=== PATIENT | female | born 1990 | race Caucasian/White ===

== ENCOUNTER 2022-03-08 22:11 | Inpatient (IN) | payer OTHER ==
[~2022-03-08] VITALS: Ht 160 cm; Wt 65.8 kg
[2022-03-08] MEDS ORDERED: METHYLERGONOVINE 0.2 MG/ML AMP IM PRN (23:05)
[2022-03-08] MEDS ORDERED: CARBOPROST 250 MCG/ML AMP IM PRN (23:05)
[2022-03-08 23:24] LABS: BASOPHILS % (AUTO) 0.5 % (0.0-2.0); EOSINOPHILS # (AUTO) 0.2 K/uL (0-0.4); EOSINOPHILS % (AUTO) 1.8 % (0.0-4.0); HEMATOCRIT 35.4 % (36-48); HEMOGLOBIN 12.2 g/dL (12.0-16.0); LYMPHOCYTES # (AUTO) 2.3 K/uL (2.5-16.5); LYMPHOCYTES % (AUTO) 25.3 % (20.5-51.1); MEAN CORPUSCULAR HEMOGLOBIN 31 pg (27-31); MEAN CORPUSCULAR HGB CONC 35 g/dL (33-37); MEAN CORPUSCULAR VOLUME 90.3 fL (80-94); MONOCYTES # (AUTO) 0.6 K/uL (0.8-1.0); MONOCYTES % (AUTO) 6.4 % (1.7-9.3); NEUTROPHILS # (AUTO) 5.9 K/uL (1.8-7.7); PLATELET COUNT (AUTO) 206 K/uL (140-450); RED BLOOD CELL COUNT(AUTO) 3.92 MIL/uL (4.20-5.40); RED CELL DISTRIBUTION WIDTH 13.1 % (11.6-13.7)
[2022-03-08 23:50] LABS: ALBUMIN 2.7 g/dL (3.4-5.0); ANION GAP 12.9 (8-16); CARBON DIOXIDE 22.5 mmol/L (21-32); CREATININE 0.6 mg/dL (0.6-1.3); POTASSIUM 3.4 mmol/L (3.5-5.1); PROTHROMBIN TIME 9.1 secs (10.8-13.4); TOTAL BILIRUBIN 0.5 mg/dL (0.0-1.0)
[2022-03-08 23:56] LABS: APPEARANCE,URINE HAZY (CLEAR); BILIRUBIN,URINE NEGATIVE (NEGATIVE); BLOOD, URINE NEGATIVE (NEGATIVE); COLOR,URINE YELLOW (YELLOW); LEUKOCYTE ESTERASE ,URINE 2+ (NEGATIVE); NITRITE, URINE NEGATIVE (NEGATIVE); PH,URINE 6.5 (5.0-9.0); UGLUCOSE NEGATIVE (NEGATIVE)
[2022-03-09 00:23] LABS: RBC,URINE 0-5 /HPF (0-5)
[2022-03-09] MEDS: LACTATED RINGERS 1,000 ML IV SCH ×2 (02:35→04:14)
[2022-03-09 03:34] VITALS: BP 104/71
[2022-03-09] MEDS ORDERED: OXYTOCIN 20 UNITS in LACTATED RINGERS 1,000 ML IV SCH (03:35)
[2022-03-09] MEDS ORDERED: ROPIVACAINE 0.2%/NS PREMIX 200 ML EPI ONE (03:42)
[2022-03-09] MEDS ORDERED: fentaNYL citrate 0.05 MG/ML VIAL ONE (03:42)
[2022-03-09] MEDS ORDERED: OXYTOCIN 20 UNITS/LR PREMIX 1,000 ML IV ONE (04:01)
[2022-03-09] MEDS: LACTATED RINGERS 500 ML IV SCH ×2 (08:13→12:17)
--- NOTE | 2022-03-09 08:49 | NUR ---
PATIENT HAS BEEN SCREENED AND CATEGORIZED LOW NUTRITION RISK. PATIENT WILL BE SEEN WITHIN 7 DAYS OF ADMISSION. 03/15/[address]
[2022-03-09] MEDS ORDERED: METHYLERGONOVINE 0.2 MG TAB PO PRN (13:00)
[2022-03-09] MEDS ORDERED: IBUPROFEN 800 MG TAB PO PRN (13:00)
[2022-03-09] MEDS ORDERED: BENZOCAINE/MENTHOL 20%-0.5% 60 GM CAN TP PRN (13:00)
[2022-03-09] MEDS ORDERED: OXYTOCIN 10 UNITS/ML VIAL IM PRN (13:00)
[2022-03-09] MEDS ORDERED: MEASLES, MUMPS, AND RUBELLA 1 VIAL SQVAC ONE (13:00)
[2022-03-09] MEDS ORDERED: METHYLERGONOVINE 0.2 MG/ML AMP IM PRN (13:00)
[2022-03-10 14:56] LABS: HEMATOCRIT 30.6 % (36-48); HEMOGLOBIN 10.6 g/dL (12.0-16.0)
== END 2022-03-11 17:14 | disposition home or self-care (01) | DRG 560 ==
LOC: MLD 22:11 → MFCC 03-09 15:05
PROVIDERS: ADMIT Obstetrics & Gynecology; ATTEND Obstetrics & Gynecology
PROC: 10E0XZZ Delivery of Products of Conception, External Approach (ICD-10-PCS; principal; 2022-03-09)
PROC: 0HQ9XZZ Repair Perineum Skin, External Approach (ICD-10-PCS; 2022-03-09)
PROC: 3E0R3BZ Introduction of Anesthetic Agent into Spinal Canal, Percutaneous Approach (ICD-10-PCS; 2022-03-09)
PROC: 00HU33Z Insertion of Infusion Device into Spinal Canal, Percutaneous Approach (ICD-10-PCS; 2022-03-09)
DX: O80 Encounter for full-term uncomplicated delivery (principal); Z37.0 Single live birth; D62 Acute posthemorrhagic anemia; O70.0 First degree perineal laceration during delivery; Z20.822 Contact with and (suspected) exposure to COVID-19; Z3A.39 39 weeks gestation of pregnancy
CPT/HCPCS: 36415; 51702; 59409; 76815; 80053; 81001; 85018; 85025; 85610; 85730; 86592; 86886; 86900; 86901; 87086; J2590; J2795; J3010; Q0092

== ENCOUNTER 2024-04-19 13:47 | Inpatient (IN) | payer OTHER ==
[~2024-04-19] VITALS: Ht 165.1 cm; Wt 65.8 kg
[2024-04-19] MEDS ORDERED: PREN-543 PO (13:56)
[2024-04-19] MEDS ORDERED: OXYTOCIN/0.9 % SODIUM CHLORIDE 500 ML IV SCH (14:20)
[2024-04-19] MEDS ORDERED: CARBOPROST 250 MCG/ML AMP IM PRN (14:20)
[2024-04-19] MEDS ORDERED: LACTATED RINGERS 500 ML IV SCH (14:20)
[2024-04-19] MEDS ORDERED: METHYLERGONOVINE 0.2 MG/ML AMP IM PRN ×2 (14:20→15:20)
[2024-04-19] MEDS ORDERED: OXYTOCIN 10 UNITS/ML VIAL IM SCH (14:20)
[2024-04-19 14:25] LABS: BASOPHILS % (AUTO) 0.3 % (0.0-2.0); EOSINOPHILS # (AUTO) 0.1 K/uL (0-0.4); EOSINOPHILS % (AUTO) 0.4 % (0.0-4.0); HEMATOCRIT 37.6 % (36-48); LYMPHOCYTES # (AUTO) 1.7 K/uL (2.5-16.5); LYMPHOCYTES % (AUTO) 12.4 % (20.5-51.1); MEAN CORPUSCULAR HEMOGLOBIN 32 pg (27-31); MEAN CORPUSCULAR HGB CONC 35 g/dL (33-37); MEAN CORPUSCULAR VOLUME 92.8 fL (80-94); MONOCYTES # (AUTO) 0.6 K/uL (0.8-1.0); MONOCYTES % (AUTO) 4.3 % (1.7-9.3); NEUTROPHILS # (AUTO) 11.2 K/uL (1.8-7.7); NEUTROPHILS % (AUTO) 82.6 % (42.2-75.2); PLATELET COUNT (AUTO) 204 K/uL (140-450); RED BLOOD CELL COUNT(AUTO) 4.05 MIL/uL (4.20-5.40); RED CELL DISTRIBUTION WIDTH 13.2 % (11.6-13.7); WHITE BLOOD COUNT (AUTO) 13.5 K/uL (4.8-10.8)
[2024-04-19] MEDS ORDERED: LIDOCAINE 1% 500 MG/50 ML VIAL ONE (14:28)
[2024-04-19 14:38] LABS: ALBUMIN 2.6 g/dL (3.4-5.0); ANION GAP 14.7 (8-16); CALCIUM 8.8 mg/dL (8.5-10.1); CARBON DIOXIDE 21.7 mmol/L (21-32); CREATININE 0.6 mg/dL (0.6-1.3); POTASSIUM 3.4 mmol/L (3.5-5.1); TOTAL BILIRUBIN 0.5 mg/dL (0.0-1.0); TOTAL PROTEIN, SERUM 6.7 g/dL (6.4-8.2)
[2024-04-19] MEDS ORDERED: MORPHINE SULFATE 10 MG/ML VIAL IVP PRN (14:55)
[2024-04-19] MEDS ORDERED: ONDANSETRON 4 MG/2 ML VIAL IVP PRN (14:55)
[2024-04-19 15:08] LABS: INR 0.89 (0.8-1.2); PARTIAL THROMBOPLASTIN TIME 23.9 secs (22-35.6); PROTHROMBIN TIME 9.5 secs (10.8-13.4)
[2024-04-19] MEDS ORDERED: SODIUM PHOSPHATE 118 ML ENEM RC PRN (15:20)
[2024-04-19] MEDS ORDERED: oxyCODONE/APAP 5/325 MG 1 TAB TAB PO PRN (15:20)
[2024-04-19] MEDS ORDERED: BENZOCAINE/MENTHOL 20%-0.5% 60 GM CAN TP PRN (15:20)
[2024-04-19] MEDS ORDERED: IBUPROFEN 800 MG TAB PO PRN (15:20)
[2024-04-19] MEDS ORDERED: LIDOCAINE MPF 1% 10 MG/ML VIAL INJ ONE (15:20)
[2024-04-19] MEDS ORDERED: MEASLES, MUMPS, AND RUBELLA 1 VIAL SQVAC ONE (15:20)
[2024-04-19] MEDS ORDERED: OXYTOCIN 10 UNITS/ML VIAL IM PRN (15:20)
[2024-04-19] MEDS ORDERED: TEMAZEPAM 15 MG CAP PO PRN (15:20)
[2024-04-19] MEDS: MORPHINE SULFATE 10 MG/ML VIAL ONE (15:33)
[2024-04-19] MEDS: ONDANSETRON 4 MG/2 ML VIAL ONE (15:34)
[2024-04-19] MEDS: ceFAZolin 2,000 MG VIAL ONE (15:34)
[2024-04-19 15:52] LABS: APPEARANCE,URINE CLEAR (CLEAR); BILIRUBIN,URINE NEGATIVE (NEGATIVE); BLOOD, URINE NEGATIVE (NEGATIVE); COLOR,URINE YELLOW (YELLOW); LEUKOCYTE ESTERASE ,URINE TRACE (NEGATIVE); NITRITE, URINE NEGATIVE (NEGATIVE); PROTEIN,URINE 1+ (NEGATIVE); UGLUCOSE NEGATIVE (NEGATIVE); UROBILINOGEN,URINE 0.2 EU/dL (0.2 - 1)
[2024-04-19] MEDS: LACTATED RINGERS 1,000 ML IV SCH (16:18)
[2024-04-19] MEDS: OXYTOCIN/0.9 % SODIUM CHLORIDE 500 ML IV ONE (16:19)
[2024-04-19 16:52] VITALS: BP 118/67; PULSE 85; RESP 18; TEMP 97.8
[2024-04-19] MEDS ORDERED: bisacodyL 5 MG TABEC PO SCH (21:00)
[2024-04-19] MEDS: DOCUSATE SOD/SENNA 50/8.6 MG 1 TAB PO SCH (21:01)
[2024-04-20 05:20] LABS: HEMATOCRIT 30.6 % (36-48); HEMOGLOBIN 10.7 g/dL (12.0-16.0)
[2024-04-20] MEDS: MEASLES, MUMPS, AND RUBELLA 1 VIAL SQVAC ONE (05:33)
[2024-04-21] MEDS ORDERED: MEDS-TO-BEDS MC SCH (21:00)
== END 2024-04-21 15:20 | disposition home or self-care (01) | DRG 560 ==
LOC: MLD 13:47 → OBSVTOIN 14:20 → MFCC 16:35
PROVIDERS: ADMIT Obstetrics & Gynecology; ATTEND Obstetrics & Gynecology
PROC: 10E0XZZ Delivery of Products of Conception, External Approach (ICD-10-PCS; principal; 2024-04-19)
DX: O80 Encounter for full-term uncomplicated delivery (principal); Z37.0 Single live birth; Z3A.38 38 weeks gestation of pregnancy
CPT/HCPCS: 36415; 59409; 80053; 81003; 85018; 85025; 85610; 85730; 86592; 86886; 86900; 86901; 87340; 90707; J2001; J2270; J2405; J2590